=== PATIENT | male | born 1940 | race Native Hawaiian/Other Pacific Islander ===

== ENCOUNTER 2024-05-04 04:29 | Emergency (ER) | payer MEDICARE, BC, SELFPAY ==
[2024-05-04 04:36] VITALS: PULSE 88; RESP 20; O2SAT 99
[2024-05-04 04:44] VITALS: BP 161/75; PULSE 76; RESP 17; TEMP 36.8; O2SAT 97
--- NOTE | 2024-05-04 04:55 | XR_ITS ---
Examination: PA chest single view Technique: Upright PA chest single view Exam date and time: May 04, 2024 0509 hrs. Comparison May 16, 2019 Indications: Onset weakness today. Findings: Normal heart size Pleural parenchymal scarring right base Small unchanged nodular densities at the right apex No interval pneumonia or pulmonary edema Impression: No interval pneumonia or pulmonary edema
--- NOTE | 2024-05-04 04:55 | XR_ITS ---
Examination: CT brain head without contrast. 2-D sagittal coronal reconstructions Date and time of exam:May 04, 2024 0518 hrs. Indications: Onset headaches with left-sided facial numbness beginning 4 hours ago CTDI: vol (mGy):51.40 DLP: (mGycm):1048 Technique: Multiple CT axial sections of the brain have been obtained, 5 mm slice thickness. Contrast has not been administered. 2-D sagittal, coronal reconstructions have been obtained Low dose protocols were performed. One or more of the following dose reduction techniques were used; automated exposure control, adjustment of the mA and/or KV according to patient size, use of iterative reconstruction technique. Findings: No significant ventricular enlargement. Intra-axial or extra-axial hemorrhage density is not seen. No mass effect or midline shift Basal cisterns are not remarkable. Fourth ventricle is midline. Cranial vault intact. Impression: Negative for acute hemorrhage, mass effect or midline shift Brain MRI follow-up would best assess for acute ischemic change
--- NOTE | 2024-05-04 04:56 | EDRME_ITS ---
Rapid Medical Screening Exam [facility] Arrival date/time: 05/04/24 04:29 84M with history of HTN and Parkinson's presents to ED with 2 days ( the day before yesterday ) of RICARDO and L facial numbness. Patient denies URI symptoms. Patient states his speech sounds abnormal to him. Chief Complaint: Headache Vital signs: Vital Signs Temperature 98.2 F 05/04/24 04:44 Pulse Rate 76 05/04/24 04:44 Respiratory Rate 17 05/04/24 04:44 Blood Pressure 161/75 H 05/04/24 04:44 Pulse Oximetry (%) 97 05/04/24 04:44 Oxygen Delivery Method Room Air 05/04/24 04:44
--- NOTE | 2024-05-04 05:47 | PRELIM_ITS ---
CT scan of the head without intravenous contrast (axial sections with sagittal and coronal reformats) May 04, 2024 0518 hours Clinical history: RICARDO and L-sided facial numbness Compared with the prio r study dated March 29, 2022.Findings:There is no evidence of intracranial hemorrhage, mass effect or midline shift. There are periventricular white matter hypodensities, compatible with chronic small vessel ischemia. There is moderate volume loss. Basal ganglia calcifications are present bilaterally . There is atheromatous calcification of the intracranial arteries. The calvarium is unremarkable. Th ere is mild mucosal thickening in the both maxillary sinuses. The mastoid air cells and the other vis ualized paranasal sinuses are clear.Impression:No evidence of intracranial hemorrhage, mass effect or midline shift.Periventricular chronic small vessel ischemia and volume loss. Report Electronically S igned By: Rene Valdes 05/04/2024 5:46:38 AM [EST]
[2024-05-04 05:51] LABS: Collection Type, Urine Clean Catch; Squamous Epithelial Cell,Urine 0 /hpf (0-5)
[2024-05-04 06:04] LABS: Bilirubin,Urine Negative (Negative); Blood,Urine Negative (Negative); Clarity,Urine Clear (Clear/Hazy); Color,Urine Colorless (Lt Yel-Yel); Culture Indicated,Urine Not Indicated; Glucose, Urine Negative (Negative); Ketones,Urine Negative (Negative); Leukocyte Esterase,Urine Negative (Negative); Nitrite,Urine Negative (Negative); Protein,Urine Negative (Neg - Trace); RBC,Urine 1 /hpf (0-3); Specific Gravity,Urine 1.009 (1.001-1.035); Urobilinogen,Urine Negative mg/dL (0.0-1.0); WBC,Urine 1 /hpf (0-5)
[2024-05-04 06:13] LABS: Basophils # (Auto) 0.1 Thou/mm3 (0.0-0.2); Basophils % (Auto) 1 % (0-2.5); Eosinophils % (Auto) 1 % (0-10); Hematocrit 45.7 % (41.0-53.0); Hemoglobin 15.4 g/dL (13.5-16.0); Immature Granulocytes % (Auto) 0 % (0-0); Immature Granulocytes Auto 0.02 Thou/mm3 (0.00-0.00); Lymphocytes # (Auto) 0.8 Thou/mm3 (1.0-4.8); Lymphocytes % (Auto) 13 % (10-50); Mean Corpuscular HGB Conc 33.7 g/dl (31.0-37.0); Mean Corpuscular Hemoglobin 30.9 pg (25.0-35.0); Mean Corpuscular Volume 92 fL (80-100); Monocytes # (Auto) 0.6 Thou/mm3 (0.0-0.8); Monocytes % (Auto) 10 % (0-12); Neutrophils # (Auto) 4.4 Thou/mm3 (1.8-7.7); Neutrophils % (Auto) 75 % (37-80); Nucleated Red Blood Cell % 0 /100 WBC (0); Platelet Count 179 Thou/mm3 (140-440); RDW Standard Deviation 42.6 fL (35.1-43.9); Red Blood Count 4.99 Miln/mm3 (4.50-5.90); White Blood Count 5.9 Thou/mm3 (3.8-10.6)
[2024-05-04 06:36] LABS: Alanine Aminotransferase 33 U/L (10-49); Albumin, Serum 4.9 gm/dL (3.4-4.8); Albumin/Globulin Ratio 1.8 (1.2-2.2); Alkaline Phosphatase 72 U/L (46-116); Anion Gap 8 (7-16); Aspartate Amino Transferase 30 U/L (0-34); BUN/Creatinine Ratio 13 Ratio (12-20); Blood Urea Nitrogen 16 mg/dL (9-23); Calcium 9.9 mg/dL (8.3-10.6); Calcium (Corrected) 9.9 mg/dL (8.5-10.1); Carbon Dioxide 27.7 mMol/L (20.0-31.0); Chloride 101 mMol/L (98-107); Creatinine (Component) 1.2 mg/dL (0.6-1.3); Globulin 2.8 gm/dL (2.3-3.5); Glucose 117 mg/dL (74-106); Osmolality,Calculated 276 (275-295); Sodium 137 mMol/L (136-145); Total Protein 7.7 gm/dL (5.7-8.2); Troponin I < 0.020 ng/mL (0.0-0.045); eGFR > 60 See Note
[2024-05-04 07:51] VITALS: BP 165/67; PULSE 84; RESP 15; TEMP 37; O2SAT 98
[2024-05-04 08:32] LABS: Partial Thromboplastin Time 26.9 Seconds (22.0-36.0); Prothrombin Time 10.9 Seconds (9.0-12.2)
[2024-05-04 11:22] VITALS: BP 125/67; PULSE 63; RESP 16; TEMP 36.9; O2SAT 99
--- NOTE | 2024-05-04 11:22 | PD.EDADULT ---
ED General RME/HPI General Chief complaint: Headache Stated complaint: HEADACHE Time Seen by Provider: 05/04/24 05:41 Arrival date/time: 05/04/24 04:29 CC: Numbness around his mouth, with mild headache HPI ongoing for the past 2 days was seen here previously for the same complaints patient currently at the time of the exam at 1122 is awake alert oriented no numbness no headache no focal deficits has no specific complaints of pain. at bedside is exceedingly poor historian the patient is awake alert oriented x 3 not in any acute distress. RME / HPI RME / HPI narrative: 05/04/24 04:29 84M with history of HTN and Parkinson's presents to ED with 2 days ( the day before yesterday ) of RICARDO and L facial numbness. Patient denies URI symptoms. Patient states his speech sounds abnormal to him. Related Data Home Medications ?Medication ?Instructions ?Recorded ?Confirmed aspirin 81 mg tablet,delayed 81 mg PO QDAY 03/28/19 06/18/20 release atorvastatin 20 mg tablet 20 mg PO QDAY 03/26/20 06/18/20 losartan 50 mg tablet 50 mg PO QDAY 03/26/20 06/18/20 Previous Rx's ?Medication ?Instructions ?Recorded diltiazem HCl 180 mg 180 mg PO QDAY #30 caps 05/02/18 capsule,extended release 24 hr (Cardizem CD) Allergies Allergy/AdvReac Type Severity Reaction Status Date / Time Penicillins Allergy Mild Hives Verified 03/29/22 00:02 Review of Systems Review of Systems Narrative Review of Systems: GEN: No fever, no chills, no weight loss EYES: No discharge, no visual changes, no pain HEENT: No ear pain, no congestion, no sore throat PULM: No shortness of breath, no cough, no congestion CV: No chest pain, no dyspnea on exertion, no palpitations GI: No nausea, no vomiting, no diarrhea, no pain, no constipation : No frequency, no urgency, no dysuria MUSC/SKEL: No joint pain, no back pain SKIN: No rash PSYCH: No hallucinations, no depression HEME/LYMPH: No easy bleeding or bruising tendencies NEURO: No weakness, + headache Past Medical History Past Medical History NEUROLOGIC: Negative Neurological Disorders or Seizures CARDIAC: Positive Cardiac Disorders, Angina, Hypercholesterolemia and Hypertension; Negative Congestive Heart Failure RESPIRATORY: Negative Chronic Obstructive Pulmonary Disease (COPD) GASTROINTESTINAL: Positive Gastrointestinal Disorders and Ulcer; Negative Hepatitis GENITOURINARY: Negative Genitourinary Disorders, Renal Disease or Kidney Stones MUSCULOSKELETAL: Negative Musculoskeletal Disorders ENT: Positive Cataracts and Glaucoma ENDOCRINE: Negative Diabetes Mellitus Type 1 or Diabetes Mellitus Type 2 HEMATOLOGIC: Negative Blood Disorders OTHER HISTORY: Negative Autoimmune Disease, Falls, Blood Transfusions, Blood Transfusion Reaction, Anesthesia Reactions, Organ Transplant, MRSA, VRSA, Vancomycin-Resistant Enterococci, Human Immunodeficiency Virus (HIV), Chicken Pox, Measles, Mumps, Rubella ([place] Measles), Pertussis or Clostridium Difficile Family History FAMILY HISTORY: Positive Family Cancer; Negative Family Psychiatric Problems, Family Respiratory Disorders, Family Cardiac Disorders, Family Gastrointestinal Problems, Family Surgery or Family Anesthesia Reaction Surgical History SURGICAL: Positive Cardiac Surgery, Coronary Stent and Abdominal Surgery; Negative Endocrine Surgery, Thyroidectomy, Ear Surgery, Joint Replacement or Organ Transplant Social History SMOKING STATUS: Former smoker SECOND HAND EXPOSURE: No ED Exam Narrative Physical exam: [General: Mildly deconditioned but not in any acute distress Head normocephalic HEENT: Eyes pupils are PERRLA EOMs are intact tracking, mouth symmetrical smiled no deviated tongue pink dry membranes swallow symmetrical phonation is normal. All other subsystems of HEENT are within acceptable limits Neck is supple nontender Chest equal chest rise nontender to palpation Respiratory: Clear to auscultation no wheezes crackles or rubs CV: Rate rhythm is regular no murmurs rubs or clicks Abdomen is distended secondary to body habitus soft nontender no masses positive bowel sounds all 4 quadrants Back: No CVA tenderness no spinous process tenderness from cervical spine thoracic and lumbar spine Skin: Intact no petechiae rash induration ulceration or crepitus Extremities: Moving all extremity against resistance cap refill less than 2 seconds neurosensory intact Neuro: Awake alert oriented x3 Glascow coma 15 no focal deficits] Course Quality Measures none Orders Category Date Time Status EKG (ED ONLY) *Do not use* NOW Care 05/04/24 04:[address] head/brain wo con Stat Exams 05/04/24 04:55 Completed EKG (ED Only) Stat Exams 05/04/24 04:55 Ordered XR chest 1V portable Stat Exams 05/04/24 04:55 Completed CBC Stat Lab 05/04/24 06:00 Completed Comprehensive Metabolic Panel Stat Lab 05/04/24 06:00 Completed Partial Thromboplastin Time Stat Lab 05/04/24 06:00 Completed Prothrombin Time with INR Stat Lab 05/04/24 06:00 Completed Troponin I Stat Lab 05/04/24 06:00 Completed Urinalysis, C/S if Indicated Stat Lab 05/04/24 05:34 Completed Vital Signs Vital signs: Vital Signs Temperature 98.2 F 05/04/24 04:44 Pulse Rate 76 05/04/24 04:44 Respiratory Rate 17 05/04/24 04:44 Blood Pressure 161/75 H 05/04/24 04:44 Pulse Oximetry (%) 97 05/04/24 04:44 Oxygen Delivery Method Room Air 05/04/24 04:44 MDM Patient data External records reviewed:: [facility] previous records Clinical information provided by:: patient and spouse Social determinants that could affect healthcare access:: none Patient has the following chronic illnesses:: Hypertension hyperlipidemia How is presenting disease/condition affected by chronic disease/condition?: uneffected by Evaluation data The following diagnostics were reviewed and interpreted by me:: lab results, radiology exam(s) and EKG tracing(s) Lab and/or radiology exams considered but not ordered:: CT of the head is negative for any acute findings as interpreted by me read by radiology EKG performed at 0506 shows ventricular rate of 73 NE interval 145 QRS of 102 QTc of 378 this is a sinus rhythm. CBC shows no acute leukocytosis anemia thrombocytopenia CMP shows no acute electrolyte imbalances renal impairment transaminitis or T. bili elevation. Interpretation Summary: CVA, TIA possible headache, circumoral numbness low index of suspicion for CVA. Medications Medications considered but not ordered:: None Medication administrations:: None Consultations Consultation(s) initiated? (list below): No Diagnosis Differential Diagnosis ED Complaint MDM: CVA TIA headache Most likely diagnosis given after review of the tests above:: Headache Admission Indicated Admission indicated?: not indicated Explain why admission is indicated or not indicated:: Stable for outpatient follow-up Admission Request Was there a request for admission?: No Disposition Plan Disposition Plan: Discharge Discharge Attestation Discharge Attestation: The patient and all family members were given an opportunity to ask questions and understood the discharge instructions. Discharge instructions specifically effects, indications for sooner follow up or return to the emergency department, and the expected course of current diagnosis. Patient condition: Stable Medical Decision Making Differential Diagnosis Differential Diagnosis: CVA TIA headache Lab Data 05/04/24 06:00 05/04/24 06:00 Labs: Lab Results 05/04/24 05/04/24 Range/Units 05:34 06:00 WBC 5.9 (3.8-10.6) Thou/mm3 RBC 4.99 (4.50-5.90) Miln/mm3 Hgb 15.4 (13.5-16.0) g/dL Hct 45.7 (41.0-53.0) % MCV 92 (80-100) fL MCH 30.9 (25.0-35.0) pg MCHC 33.7 (31.0-37.0) g/dl RDW Std Deviation 42.6 (35.1-43.9) fL Plt Count 179 (140-440) Thou/mm3 Neut % (Auto) 75 (37-80) % Lymph % (Auto) 13 (10-50) % [place] % (Auto) 10 (0-12) % Eos % (Auto) 1 (0-10) % Baso % (Auto) 1 (0-2.5) % Neut # (Auto) 4.4 (1.8-7.7) Thou/mm3 Lymph # (Auto) 0.8 L (1.0-4.8) Thou/mm3 [place] # (Auto) 0.6 (0.0-0.8) Thou/mm3 Eos # (Auto) 0.0 (0.0-0.5) Thou/mm3 Baso # (Auto) 0.1 (0.0-0.2) Thou/mm3 Immature Gran # (Auto) 0.02 H (0.00-0.00) Thou/mm3 Absolute Nucleated RBC 0.00 (0.00-0.00) Thou/mm3 Immature Gran % 0 (0-0) % Nucleated RBC % 0 (0) /100 WBC PT 10.9 (9.0-12.2) Seconds INR 1.0 (0.9-1.3) APTT 26.9 (22.0-36.0) Seconds Sodium 137 (136-145) mMol/L Potassium 4.0 (3.4-5.1) mMol/L Chloride 101 (98-107) mMol/L Carbon Dioxide 27.7 (20.0-31.0) mMol/L Anion Gap 8 (7-16) BUN 16 (9-23) mg/dL Creatinine 1.2 (0.6-1.3) mg/dL Estim Creat Clear Calc Not Performed. eGFR > 60 (60 - ) See Note BUN/Creatinine Ratio 13 (12-20) Ratio Glucose 117 H (74-106) mg/dL Calculated Osmolality 276 (275-295) Calcium 9.9 (8.3-10.6) mg/dL Corrected Calcium 9.9 (8.5-10.1) mg/dL Total Bilirubin 1.0 (0.3-1.2) mg/dL AST 30 (0-34) U/L ALT 33 (10-49) U/L Alkaline Phosphatase 72 (46-116) U/L Troponin I < 0.020 (0.0-0.045) ng/mL Total Protein 7.7 (5.7-8.2) gm/dL Albumin 4.9 H (3.4-4.8) gm/dL Globulin 2.8 (2.3-3.5) gm/dL Albumin/Globulin Ratio 1.8 (1.2-2.2) Ur Collection Type Clean Catch Urine Color Colorless A (Lt Yel-Yel) Urine Clarity Clear (Clear/Hazy) Urine pH 6.0 (5.0-7.0) Ur Specific [place] 1.009 (1.001-1.035) Urine Protein Negative (Neg - Trace) Urine Glucose (UA) Negative (Negative) Urine Ketones Negative (Negative) Urine Blood Negative (Negative) Urine Nitrite Negative (Negative) Urine Bilirubin Negative (Negative) Urine Urobilinogen (Auto) Negative (0.0-1.0) mg/dL Ur Leukocyte Esterase Negative (Negative) Urine RBC 1 (0-3) /hpf Urine WBC 1 (0-5) /hpf Ur Squamous Epith Cells 0 (0-5) /hpf Urine Bacteria None (None) Ur Culture Indicated? Not Indicated Discharge Plan Plan Patient Disposition: HOME (Self Care) Patient condition on transfer: Stable Prescriptions/Referrals Prescriptions/Med Rec: No Action aspirin 81 mg tablet,delayed release (DR/EC) 81 mg PO QDAY losartan 50 mg tablet 50 mg PO QDAY atorvastatin 20 mg tablet 20 mg PO QDAY diltiazem HCl [Cardizem CD] 180 mg Capsule,Extended Release 24hr 180 mg PO QDAY Qty: 30 0RF Referrals: Juliano Torres MD [Primary Care Provider] - In 1 week Problem List Clinical Impression: Headache Patient/Caregiver Discharge Instructions Education Materials: Self-Care for Headaches Additional Instructions: If worsening of symptoms return the emergency room medially for further evaluation. Print Language: Egyptian Stand Alone Forms: Rain Award Info., Patient Portal Info Letter, Work/School Release PA/PHOTOTYPESETTING EQUIPMENT MONITOR Supervising Physician PA/PHOTOTYPESETTING EQUIPMENT MONITOR Supervising Physician: Porfirio Interiano ENP
== END 2024-05-04 12:08 | disposition home or self-care (01) ==
PROVIDERS: Physician Assistant; Emergency Provider Emergency Medicine; PCP Internal Medicine
DX: R51.9 Headache, unspecified (principal); R20.0 Anesthesia of skin; R53.1 Weakness; I10 Essential (primary) hypertension; E78.00 Pure hypercholesterolemia, unspecified; Z87.891 Personal history of nicotine dependence
CPT/HCPCS: 36415; 70450; 71045; 80053; 81001; 84484; 85025; 85610; 85730; 93005; 99284

== ENCOUNTER → 2024-08-11 | Outpatient (CLI) | payer MEDICARE, BC, SELFPAY ==
[2024-08-11 09:38] LABS: Basophils # (Auto) 0.1 Thou/mm3 (0.0-0.2); Basophils % (Auto) 1 % (0-2.5); Eosinophils # (Auto) 0.1 Thou/mm3 (0.0-0.5); Eosinophils % (Auto) 2 % (0-10); Hemoglobin 15.2 g/dL (13.5-16.0); Immature Granulocytes % (Auto) 0 % (0-0); Immature Granulocytes Auto 0.01 Thou/mm3 (0.00-0.00); Lymphocytes # (Auto) 1.2 Thou/mm3 (1.0-4.8); Lymphocytes % (Auto) 24 % (10-50); Mean Corpuscular Volume 94 fL (80-100); Monocytes # (Auto) 0.5 Thou/mm3 (0.0-0.8); Monocytes % (Auto) 10 % (0-12); Neutrophils # (Auto) 3.1 Thou/mm3 (1.8-7.7); Neutrophils % (Auto) 62 % (37-80); Nucleated Red Blood Cell % 0 /100 WBC (0); Platelet Count 169 Thou/mm3 (140-440); White Blood Count 4.9 Thou/mm3 (3.8-10.6)
[2024-08-11 09:59] LABS: Alanine Aminotransferase 26 U/L (10-49); Albumin, Serum 4.4 gm/dL (3.4-4.8); Albumin/Globulin Ratio 1.5 (1.2-2.2); Alkaline Phosphatase 64 U/L (46-116); Anion Gap 9 (7-16); Aspartate Amino Transferase 26 U/L (0-34); BUN/Creatinine Ratio 15 Ratio (12-20); Bilirubin,Total 0.8 mg/dL (0.3-1.2); Blood Urea Nitrogen 17 mg/dL (9-23); Calcium 9.8 mg/dL (8.3-10.6); Calcium (Corrected) 9.8 mg/dL (8.5-10.1); Carbon Dioxide 27.2 mMol/L (20.0-31.0); Chloride 107 mMol/L (98-107); Creatinine (Component) 1.1 mg/dL (0.6-1.3); Free T4 (Free Thyroxine) 1.09 ng/dL (0.89-1.76); Globulin 2.9 gm/dL (2.3-3.5); Glucose 118 mg/dL (74-106); Osmolality,Calculated 287 (275-295); Potassium 4.4 mMol/L (3.4-5.1); Sodium 143 mMol/L (136-145); Thyroid Stimulating Hormone 3.76 uIU/mL (0.55-4.78); Total Protein 7.3 gm/dL (5.7-8.2); eGFR > 60 See Note
[2024-08-11 14:48] LABS: Glucose Estimated Average 131 mg/dL (80-131); Hemoglobin A1C 6.2 % Hgb (4.8-6.0)
[2024-08-11 15:04] LABS: Vitamin D 25 Hydroxy Total 25.6 ng/mL (7.3-40.2)
[2024-08-11 15:06] LABS: Cholesterol 186 mg/dL (132-200); HDL Cholesterol 61 mg/dL (40-60); LDL Cholesterol,Calculated 102 mg/dL (0-130); Triglycerides 113 mg/dL (30-150)
== END | disposition home or self-care (01) ==
LOC: COPL 08:42
PROVIDERS: PCP Internal Medicine; Referring Provider Internal Medicine; Visit Provider Internal Medicine
DX: I11.0 Hypertensive heart disease with heart failure (principal); E11.9 Type 2 diabetes mellitus without complications; E55.9 Vitamin D deficiency, unspecified; E78.2 Mixed hyperlipidemia; E03.9 Hypothyroidism, unspecified
CPT/HCPCS: 36415; 80053; 80061; 82306; 83036; 84439; 84443; 85025